=== PATIENT | male | born 1965 | race Caucasian/White ===

== ENCOUNTER 2021-10-08 14:44 | Inpatient (IN) ==
[2021-10-08] MEDS ORDERED: 0.9 % Sodium Chloride 250 ML ONE ×2 (17:37→23:31)
[2021-10-08] MEDS ORDERED: Acetaminophen 325 MG TABLET PO PRN (18:26)
[2021-10-08] MEDS ORDERED: Naloxone 0.4 MG/ML INJ IVP PRN (18:26)
[2021-10-08] MEDS ORDERED: *HR* LORazepam 2 MG/ML VIAL IVP PRN ×3 (20:00)
[2021-10-08 20:51] LABS: Basophils % 0.3 %; Eosinophils # 0.1 K/mcL (0.0-0.6); Eosinophils % 4.1 %; Hematocrit 22.5 % (37.5-50.1); Hemoglobin 6.3 g/dL (12.9-16.9); Immature Granulocytes % 0.3 % (0-4); Immature Platelets 5.8 % (1.1-6.1); Immature Reticulocyte % 24.1 % (11.0-38.0); Lymphocytes % 27.8 %; Mean Corpuscular Hemoglobin 20.4 pg (28.0-33.3); Mean Corpuscular Volume 72.8 fL (83.0-100.0); Monocytes # 0.3 K/mcL (0.0-1.3); Monocytes % 9.3 %; Red Blood Count 3.09 M/mcL (4.19-5.50); Red Cell Distribution Width 21.1 % (11.5-14.5); Retculocyte # 0.05 M/mcL (0.05-0.10); Reticulocyte % 1.5 % (1.6-2.8); Segmented Neutrophils % 58.2 %; White Blood Count 3.5 K/mcL (4.3-11.1)
[2021-10-08 20:55] LABS: INR 1.7; Prothrombin Time 18.7 Seconds (9.4-12.1)
[2021-10-08 20:58] LABS: Activated Partial Thrombo Time 33.8 Seconds (26.0-36.0)
[2021-10-08 21:06] LABS: Alanine Aminotransferase 17 Units/L (7-52); Alkaline Phosphatase 75 Units/L (34-104); Aspartate Amino Transferase 22 Units/L (13-39); BUN/Creatinine Ratio 10 (6-26); Blood Urea Nitrogen 7 mg/dL (6-20); Calcium 8.2 mg/dL (8.6-10.3); Carbon Dioxide 25 mEq/L (23-29); Chloride 106 mEq/L (98-107); Ethanol < 10 mg/dL (Less than 10); Globulin 3.1 g/dL (2.4-3.5); Glucose 147 mg/dL (70-105); Osmolality,Calculated 283 (280-300); Sodium 136 mEq/L (136-145); Total Protein 6.1 g/dL (6.4-8.9); eGFR For African Americans > 60 (> 60); eGFR For Non-African Americans > 60 (> 60)
[2021-10-08 21:11] LABS: Anisocytosis 2+ (Not Present); Hypochromasia Present (Not Present); Platelet Count 64 K/mcL (140-400); Platelet Estimate Decreased (Normal)
[2021-10-08 21:12] LABS: Ovalocytes 1+ (Not Present); Poikilocytosis 1+ (Not Present)
[2021-10-08] MEDS ORDERED: Octreotide 50 MCG/ML INJ IVP ONE (21:48)
[2021-10-08] MEDS ORDERED: Pantoprazole 40 MG VIAL IVP ONE (21:49)
[2021-10-08] MEDS ORDERED: Octreotide 400 MCG in 0.9 % Sodium Chloride 100 ML IVC SCH (22:00)
[2021-10-09] MEDS ORDERED: Iopamidol - 370 500 ML MLS IVP ONE (03:22)
[2021-10-09] MEDS ORDERED: Dextrose Gel 15 GM/37.5 ML TUBE PO PRN ×2 (03:59)
[2021-10-09] MEDS ORDERED: D5% in Water 1,000 ML IVC PRN (03:59)
[2021-10-09] MEDS ORDERED: *HR* Dextrose 50 % in Water (Syg) 50 ML SYRINGE IVP PRN (03:59)
[2021-10-09 05:14] LABS: Basophils % 0.6 %
[2021-10-09 05:16] LABS: Eosinophils # 0.2 K/mcL (0.0-0.6); Eosinophils % 4.7 %; Hematocrit 23.7 % (37.5-50.1); Hemoglobin 6.8 g/dL (12.9-16.9); Immature Granulocytes % 0.3 % (0-4); Immature Platelets 6.7 % (1.1-6.1); Lymphocytes % 30.6 %; Mean Corpuscular HGB Conc 28.7 g/dL (31.6-35.5); Mean Corpuscular Volume 73.1 fL (83.0-100.0); Monocytes # 0.3 K/mcL (0.0-1.3); Monocytes % 8.5 %; Neutrophils # 1.9 K/mcL (1.6-8.9); Red Blood Count 3.24 M/mcL (4.19-5.50); Red Cell Distribution Width 20.6 % (11.5-14.5); Segmented Neutrophils % 55.3 %; White Blood Count 3.4 K/mcL (4.3-11.1)
[2021-10-09 05:20] LABS: Platelet Count 60 K/mcL (140-400)
[2021-10-09 05:32] LABS: BUN/Creatinine Ratio 10 (6-26); Blood Urea Nitrogen 8 mg/dL (6-20); Calcium 7.9 mg/dL (8.6-10.3); Carbon Dioxide 27 mEq/L (23-29); Chloride 105 mEq/L (98-107); Glucose 139 mg/dL (70-105); Osmolality,Calculated 281 (280-300); Potassium 4.2 mEq/L (3.5-5.1); Sodium 135 mEq/L (136-145); eGFR For African Americans > 60 (> 60); eGFR For Non-African Americans > 60 (> 60)
[2021-10-09 06:11] LABS: Hepatitis B Surface Antigen Nonreactive (Nonreactive)
[2021-10-09 06:40] LABS: Hepatitis B Core IgM Nonreactive (Nonreactive); Hepatitis C Virus Antibody Nonreactive (Nonreactive)
[2021-10-09 06:42] LABS: Hepatitis A Antibody IgM Nonreactive (Nonreactive)
[2021-10-09] MEDS ORDERED: 0.9 % Sodium Chloride 250 ML ONE (10:40)
[2021-10-09] MEDS: Nicotine 21 MG PATCH.TD24 TD SCH (10:43)
[2021-10-09] MEDS: Vitamin B Complex/Vit C/Vit E 1 EACH TABLET PO SCH (10:44)
[2021-10-09] MEDS: Lactulose Oral Soln 20 GM/30 ML UDC PO SCH ×3 (10:44→21:28)
[2021-10-09] MEDS: Thiamine (B-1) 100 MG TABLET PO SCH (10:44)
[2021-10-09] MEDS: Folic Acid 1 MG TABLET PO SCH (10:44)
[2021-10-09] MEDS: cefTRIAXone 2,000 MG in 0.9 % Sodium Chloride 20 ML IVPB SCH (10:44)
[2021-10-09] MEDS ORDERED: *HR* Propofol 200 MG/20 ML VIAL IVP ONE ×2 (13:57→14:24)
[2021-10-09 13:58] LABS: % Iron Saturation 38 % (20-55); Iron 171 mcg/dL (65-175); Transferrin 323 mg/dL (203-362)
[2021-10-09] MEDS ORDERED: Lidocaine -MPF 2% 2 ML VIAL ONE (13:59)
[2021-10-09] MEDS ORDERED: *HR* Midazolam HCl 2 MG/2 ML VIAL ONE (13:59)
[2021-10-09 14:26] LABS: Vitamin B12 473 pg/mL (250-1100)
[2021-10-09] MEDS ORDERED: *HR* Phytonadione 5 MG TABLET PO SCH (14:30)
[2021-10-09 16:15] LABS: Hematocrit 28.1 % (37.5-50.1); Hemoglobin 8.1 g/dL (12.9-16.9)
[2021-10-09 16:31] LABS: Ferritin 41 ng/mL (20-250)
[2021-10-09] MEDS: Pantoprazole 40 MG VIAL IVP SCH (17:55)
[2021-10-09] MEDS: Melatonin 3 MG TABLET PO PRN (23:53)
[2021-10-10 04:25] LABS: Immature Granulocytes % 0.3 % (0-4); Lymphocytes % 27.5 %
[2021-10-10 04:27] LABS: Basophils % 0.6 %; Eosinophils # 0.1 K/mcL (0.0-0.6); Eosinophils % 3.9 %; Hematocrit 26.6 % (37.5-50.1); Hemoglobin 7.9 g/dL (12.9-16.9); Mean Corpuscular HGB Conc 29.7 g/dL (31.6-35.5); Mean Corpuscular Hemoglobin 22.2 pg (28.0-33.3); Mean Corpuscular Volume 74.7 fL (83.0-100.0); Monocytes # 0.3 K/mcL (0.0-1.3); Monocytes % 8.8 %; Neutrophils # 2.1 K/mcL (1.6-8.9); Red Blood Count 3.56 M/mcL (4.19-5.50); Red Cell Distribution Width 21.2 % (11.5-14.5); Segmented Neutrophils % 58.9 %; White Blood Count 3.6 K/mcL (4.3-11.1)
[2021-10-10 04:32] LABS: Platelet Count 61 K/mcL (140-400)
[2021-10-10 04:53] LABS: Alanine Aminotransferase 25 Units/L (7-52); Albumin 3.1 g/dL (3.5-5.7); Albumin/Globulin Ratio 1.1 (1.1-2.2); Alkaline Phosphatase 66 Units/L (34-104); Aspartate Amino Transferase 38 Units/L (13-39); BUN/Creatinine Ratio 11 (6-26); Bilirubin,Total 2.3 mg/dL (0.3-1.0); Blood Urea Nitrogen 8 mg/dL (6-20); Calcium 7.9 mg/dL (8.6-10.3); Carbon Dioxide 27 mEq/L (23-29); Chloride 106 mEq/L (98-107); Globulin 2.9 g/dL (2.4-3.5); Glucose 99 mg/dL (70-105); Magnesium 1.8 mg/dL (1.6-2.6); Osmolality,Calculated 282 (280-300); Phosphorous 3.7 mg/dL (2.7-4.5); Potassium 3.8 mEq/L (3.5-5.1); Sodium 137 mEq/L (136-145); eGFR For African Americans > 60 (> 60); eGFR For Non-African Americans > 60 (> 60)
[2021-10-10] MEDS: Nicotine 21 MG PATCH.TD24 TD SCH (09:04)
[2021-10-10] MEDS: Vitamin B Complex/Vit C/Vit E 1 EACH TABLET PO SCH (09:13)
[2021-10-10] MEDS: cefTRIAXone 2,000 MG in 0.9 % Sodium Chloride 20 ML IVPB SCH (09:13)
[2021-10-10] MEDS: Folic Acid 1 MG TABLET PO SCH (09:13)
[2021-10-10] MEDS: Thiamine (B-1) 100 MG TABLET PO SCH (09:13)
[2021-10-10] MEDS: Lactulose Oral Soln 20 GM/30 ML UDC PO SCH ×3 (09:15→21:47)
[2021-10-10] MEDS ORDERED: Iron Sucrose Complex 200 MG in 0.9 % Sodium Chloride 100 ML IVPB ONE (10:57)
[2021-10-10] MEDS: ALPRAZolam 0.5 MG TABLET PO PRN ×2 (14:07→23:56)
[2021-10-10] MEDS: Pantoprazole 40 MG VIAL IVP SCH (16:54)
[2021-10-10] MEDS ORDERED: SODIUM CHLORIDE/NAHCO3/KCL/PEG 4,000 ML SOLN.RECON PO ONE (17:00)
[2021-10-10] MEDS: Melatonin 3 MG TABLET PO PRN (23:56)
[2021-10-11 05:43] LABS: Basophils % 0.8 %; Hemoglobin 7.9 g/dL (12.9-16.9); Red Cell Distribution Width 22.8 % (11.5-14.5)
[2021-10-11 05:45] LABS: Eosinophils # 0.2 K/mcL (0.0-0.6); Eosinophils % 5.1 %; Hematocrit 27.2 % (37.5-50.1); Immature Granulocytes % 0.3 % (0-4); Immature Platelets 5.5 % (1.1-6.1); Lymphocytes # 1.1 K/mcL (0.6-4.6); Lymphocytes % 29.6 %; Mean Corpuscular Hemoglobin 22.3 pg (28.0-33.3); Mean Corpuscular Volume 76.6 fL (83.0-100.0); Monocytes # 0.3 K/mcL (0.0-1.3); Monocytes % 9.3 %; Red Blood Count 3.55 M/mcL (4.19-5.50); Segmented Neutrophils % 54.9 %; White Blood Count 3.6 K/mcL (4.3-11.1)
[2021-10-11 05:51] LABS: Platelet Count 58 K/mcL (140-400)
[2021-10-11 05:55] LABS: BUN/Creatinine Ratio 10 (6-26); Blood Urea Nitrogen 7 mg/dL (6-20); Calcium 8.2 mg/dL (8.6-10.3); Carbon Dioxide 26 mEq/L (23-29); Chloride 106 mEq/L (98-107); Glucose 81 mg/dL (70-105); Magnesium 1.7 mg/dL (1.6-2.6); Osmolality,Calculated 285 (280-300); Phosphorous 3.9 mg/dL (2.7-4.5); Potassium 3.5 mEq/L (3.5-5.1); Sodium 139 mEq/L (136-145); eGFR For African Americans > 60 (> 60); eGFR For Non-African Americans > 60 (> 60)
[2021-10-11] MEDS: Pantoprazole 40 MG VIAL IVP SCH (06:47)
[2021-10-11] MEDS: Thiamine (B-1) 100 MG TABLET PO SCH (08:29)
[2021-10-11] MEDS: Folic Acid 1 MG TABLET PO SCH (08:29)
[2021-10-11] MEDS: Lactulose Oral Soln 20 GM/30 ML UDC PO SCH (08:29)
[2021-10-11] MEDS: Vitamin B Complex/Vit C/Vit E 1 EACH TABLET PO SCH (08:29)
[2021-10-11] MEDS: Nicotine 21 MG PATCH.TD24 TD SCH (08:29)
[2021-10-11] MEDS: cefTRIAXone 2,000 MG in 0.9 % Sodium Chloride 20 ML IVPB SCH (08:39)
[2021-10-11] MEDS ORDERED: *HR* Propofol 200 MG/20 ML VIAL IVP ONE (12:12)
[2021-10-11] MEDS ORDERED: Lidocaine -MPF 2% 5 ML VIAL ONE (12:12)
[2021-10-11 12:28] VITALS: O2SAT 100
[2021-10-11 13:25] VITALS: BP 129/76; PULSE 70; TEMP 97.8
== END 2021-10-11 16:21 | disposition home or self-care (01) | DRG 378 ==
LOC: 3ANU → SUATTDRO 17:07
PROVIDERS: ADMIT Internal Medicine; ATTEND Internal Medicine